=== PATIENT | female | born 1995 | race Caucasian/White ===

== ENCOUNTER 2021-02-02 21:05 | Inpatient (IN) | payer OTHER ==
[2021-02-02] MEDS ORDERED: DEXTROSE 5%-LACTATED RINGERS 1,000 ML IV SCH (22:15)
[2021-02-02] MEDS: MISOPROSTOL 100 MCG TABLET PV SCH (23:15)
[2021-02-02 23:44] VITALS: BMI 49.8
[2021-02-03 01:53] LABS: INR 1.08 (0.83-1.09); PROTHROMBIN TIME (PATIENT) 12.1 SEC (9.7-13.0)
[2021-02-03 01:56] LABS: ACTIVATED PTT 46.2 SECONDS (25.2-36.5)
[2021-02-03] MEDS ORDERED: OXYTOCIN 30 UNITS in 0.9% NS 30 UNIT/500 ML INFUS.BAG IVPB ONE (03:56)
[2021-02-03] MEDS: OXYTOCIN 30 UNITS in 0.9% NS 30 UNIT/500 ML INFUS.BAG IVPB SCH (04:15)
[2021-02-03] MEDS ORDERED: DEXTROSE 5%-LACTATED RINGERS 1,000 ML IV SCH ×2 (04:15→22:30)
[2021-02-03] MEDS: MISOPROSTOL 100 MCG TABLET PV SCH ×6 (04:29→22:38)
[2021-02-03] MEDS ORDERED: ePHEDrine SULFATE 50 MG/1 ML AMPULE ONE (08:32)
[2021-02-03] MEDS ORDERED: PROMETHAZINE HCL 25 MG/1 ML VIAL IVPB ONE (10:16)
[2021-02-03] MEDS ORDERED: BUTORPHANOL TARTRATE 1 MG/ML VIAL IVPB ONE (10:16)
[2021-02-03] MEDS ORDERED: BUTORPHANOL TARTRATE 2 MG/ML VIAL ONE (10:29)
[2021-02-03] MEDS ORDERED: PROMETHAZINE HCL 25 MG/1 ML VIAL ONE (10:29)
[2021-02-03] MEDS ORDERED: PCA PUMP NR ONE ×2 (12:25→20:38)
[2021-02-03] MEDS ORDERED: FENTANYL/BUPIVACAINE/NS/PF - PCEA - 50 ML DISP.SYRIN EP ONE ×3 (12:49→21:13)
[2021-02-03] MEDS: FENTANYL/BUPIVACAINE/NS/PF - PCEA - 50 ML DISP.SYRIN EP SCH ×3 (13:55→21:20)
[2021-02-03] MEDS ORDERED: NALOXONE HCL 0.4 MG/ML VIAL IVPUSH PRN (14:11)
[2021-02-03] MEDS ORDERED: BUPIVACAINE HCL/PF 0.25% (2.5MG/ML) 10 ML VIAL ONE ×2 (19:52→22:19)
[2021-02-03] MEDS ORDERED: SODIUM CHLORIDE 500 ML IV STA (22:29)
[2021-02-04] MEDS ORDERED: LIDOCAINE HCL 1% PRESERVATIVE FREE - 30ML VIAL ONE (00:24)
[2021-02-04] MEDS ORDERED: OXYTOCIN 20 UNITS in 0.9% NS 20 UNIT/1,000 ML INFUS.BAG IV ONE ×2 (00:25→08:08)
[2021-02-04] MEDS ORDERED: OXYTOCIN 30 UNITS in 0.9% NS 30 UNIT/500 ML INFUS.BAG IVPB ONE (03:04)
[2021-02-04] MEDS: OXYTOCIN 20 UNITS in 0.9% NS 20 UNIT/1,000 ML INFUS.BAG IV SCH ×2 (05:39→08:15)
[2021-02-04 06:22] LABS: CORD BASE EXCESS -10.4 mmol/L (0-2); CORD HCO3 16.4 mmHg (20-29); CORD PCO2 39.3 mmHg (30-78); CORD pH 7.237 (7.14-7.44)
[2021-02-04] MEDS ORDERED: BENZOCAINE 20% 57 GM BOTTLE TP PRN (07:19)
[2021-02-04] MEDS ORDERED: WITCH HAZEL 50% (TUCKS) 40 PAD/JAR PAD TP PRN (07:19)
[2021-02-04] MEDS ORDERED: BISACODYL 10 MG SUPP.RECT RC PRN (07:19)
[2021-02-04] MEDS ORDERED: BENZOCAINE 28 GM HEMORRHOIDAL OINTMENT TP PRN (07:19)
[2021-02-04] MEDS ORDERED: ACETAMINOPHEN 325 MG TABLET (FP) PO PRN ×2 (07:19→08:02)
[2021-02-04] MEDS ORDERED: ACETAMINOPHEN 325 MG TABLET (FP) ONE (07:33)
[2021-02-04] MEDS ORDERED: IBUPROFEN 600 MG TABLET (FP) PO ONE (07:33)
[2021-02-04] MEDS: IBUPROFEN 600 MG TABLET (FP) PO PRN ×2 (07:40→17:38)
[2021-02-04] MEDS: MISOPROSTOL 100 MCG TABLET PV SCH (07:45)
[2021-02-04] MEDS: OXYTOCIN 30 UNITS in 0.9% NS 30 UNIT/500 ML INFUS.BAG IVPB SCH (07:45)
[2021-02-04] MEDS: FERROUS SO4 325 MG TABLET (FP) PO SCH ×3 (11:40→17:25)
[2021-02-05] MEDS: IBUPROFEN 600 MG TABLET (FP) PO PRN ×2 (00:29→06:08)
[2021-02-05] MEDS: LEVOTHYROXINE NA 75 MCG TABLET (FP) PO SCH (06:02)
[2021-02-05 08:55] LABS: BASO % 0.3 % (0-2.0); EOS % 0.7 % (0-4.5); HEMATOCRIT 26.5 % (32.4-45.2); HEMOGLOBIN 8.8 GM/dL (10.7-15.3); LYMPH % 23.4 % (8-40); MCH 29.6 pg (25.7-33.7); MCHC 33.3 g/dl (32.0-36.0); MEAN CELL VOLUME 88.8 fl (80-96); MEAN PLT VOLUME 8.1 fl (7.5-11.1); MONO % 5.5 % (3.8-10.2); NEUT % 70.1 % (42.8-82.8); PLATELET COUNT 356 10^3/uL (134-434); RBC 2.99 M/mm3 (3.60-5.2); RDW 15.2 % (11.6-15.6); WHITE BLOOD COUNT 17.1 K/mm3 (4.0-10.0)
[2021-02-05] MEDS: FERROUS SO4 325 MG TABLET (FP) PO SCH ×3 (09:09→17:37)
[2021-02-05] MEDS ORDERED: SENNOSIDES/DOCUSATE COMBO (SENNA PLUS) TABLET (UD) PO PRN (22:00)
[2021-02-06] MEDS: LEVOTHYROXINE NA 75 MCG TABLET (FP) PO SCH (06:32)
[2021-02-06] MEDS: FERROUS SO4 325 MG TABLET (FP) PO SCH ×3 (09:30→17:44)
[2021-02-07] MEDS: LEVOTHYROXINE NA 75 MCG TABLET (FP) PO SCH (06:32)
[2021-02-07] MEDS: FENTANYL/BUPIVACAINE/NS/PF - PCEA - 50 ML DISP.SYRIN EP SCH ×2 (07:01→07:10)
[2021-02-07] MEDS: FERROUS SO4 325 MG TABLET (FP) PO SCH ×2 (09:26→13:11)
[2021-02-07 11:17] VITALS: BP 117/85; PULSE 65; TEMP 98.1
== END 2021-02-07 16:38 | disposition home or self-care (01) | DRG 560 ==
LOC: JLDR 21:05 → J3W 02-04 08:19
PROVIDERS: ADMIT Obstetrics & Gynecology Maternal & Fetal Medicine; ATTEND Obstetrics & Gynecology Maternal & Fetal Medicine
PROC: 3E0P7VZ Introduction of Hormone into Female Reproductive, Via Natural or Artificial Opening (ICD-10-PCS; 2021-02-02)
PROC: 10H07YZ Insertion of Other Device into Products of Conception, Via Natural or Artificial Opening (ICD-10-PCS; 2021-02-03)
PROC: 10H073Z Insertion of Monitoring Electrode into Products of Conception, Via Natural or Artificial Opening (ICD-10-PCS; 2021-02-03)
PROC: 10D07Z6 Extraction of Products of Conception, Vacuum, Via Natural or Artificial Opening (ICD-10-PCS; principal; 2021-02-05)
PROC: 0W8NXZZ Division of Female Perineum, External Approach (ICD-10-PCS; 2021-02-05)
PROC: 0KQM0ZZ Repair Perineum Muscle, Open Approach (ICD-10-PCS; 2021-02-05)
DX: O31.1 Continuing pregnancy after spontaneous abortion of one fetus or more (principal); O13.3 Gestational [pregnancy-induced] hypertension without significant proteinuria, third trimester; O99.284 Endocrine, nutritional and metabolic diseases complicating childbirth; E03.9 Hypothyroidism, unspecified; O99.12 Other diseases of the blood and blood-forming organs and certain disorders involving the immune mechanism complicating childbirth; D75.839 Thrombocytosis, unspecified; O99.214 Obesity complicating childbirth; E66.01 Morbid (severe) obesity due to excess calories; O75.81 Maternal exhaustion complicating labor and delivery; O70.1 Second degree perineal laceration during delivery; Z3A.39 39 weeks gestation of pregnancy; Z37.0 Single live birth
CPT/HCPCS: 36415; 36600; 59409; 82803; 85025; 85610; 85730; 88307-TC